=== PATIENT | female | born 1980 | race Caucasian/White ===

== ENCOUNTER 2016-09-26 10:16 | Emergency (ER) | payer OTHER ==
[~2016-09-26] VITALS: Ht 170.2 cm; Wt 70.0 kg
[~2016-09-26 10:16] MED LIST: BENTYL10 MG PO; BENTYL20 MG PO; CIPRO500 MG PO; DELTASONE20 M1 PO; FLAGYL500 MG PO; KEFLEX500 MG PO; LORTAB 5-325 M1 EACH PO; NOHOMEMEDS; NORCO 7.5/321 TABLET PO; PERCOCET 5/31 TABLET PO; REMICADE10 MG/ML IV
[2016-09-26 11:02] LABS: ADD MIUA? YES; BILIRUBIN NEGATIVE; BLOOD NEGATIVE; COLOR YELLOW ((YELLOW)); GLUCOSE (STRIP) NEGATIVE; KETONES NEGATIVE; LEUKOCYTES NEGATIVE; NITRITE NEGATIVE; PROTEIN (STRIP) NEGATIVE; UROBILINOGEN 0.2 MG/DL (0.2-1.0)
[2016-09-26 11:08] LABS: BACTERIA 1+ /HPF; EPITHELIAL CELLS 1+ /HPF; HYALINE CASTS 0-5 /LPF; MUCUS TRACE /LPF; RED BLOOD CELLS 0-5 /HPF (0-5); UCUL ADDED? NO; WHITE BLOOD CELLS 0-5 /HPF (0-5)
[2016-09-26 11:20] LABS: CHLORIDE 105 mEq/L (99-109); POTASSIUM 3.8 mEq/L (3.7-5.4); SODIUM 138 mEq/L (136-147)
[2016-09-26 11:23] LABS: GLUCOSE 86 mg/dL (70-99)
[2016-09-26 11:24] LABS: ANION GAP 10 MEQ/L (2-14)
[2016-09-26 11:25] LABS: TOTAL BILIRUBIN 0.3 mg/dL (0.0-1.0)
[2016-09-26 11:26] LABS: ALKALINE PHOSPHATASE 133 IU/L (3-129); GFR ESTIMATE (CALCULATED) > 59 mL/min/
[2016-09-26 11:27] LABS: UREA NITROGEN (BUN) 8 mg/dL (9-23)
[2016-09-26 11:36] LABS: QUANTITATIVE HCG < 4.0 MIU/ML
[2016-09-26 12:00] LABS: HEMATOCRIT 32.8 % (36.0-46.0); MCH 19.1 PG (29.0-34.0); MCHC 27.7 G/DL (30.0-36.0); MCV 68.8 FL (83-99); PLATELET COUNT 441 K/uL (156-360); RBC DIS.WIDTH-CV 17.1 % (11.8-14.6); RBC DIS.WIDTH-SD 41.2 % (39-53); RED BLOOD COUNT 4.77 M/uL (3.80-5.20); WHITE BLOOD COUNT 8.5 K/uL (4.1-10.2)
[2016-09-26 12:01] LABS: HEM NON-PRINT COM 1 MHCT 34.7
[2016-09-26 12:11] VITALS: BP 104/72
== END 2016-09-26 12:11 | disposition home or self-care (01) ==
LOC: EME 10:16
DX: B34.9 Viral infection, unspecified (principal); Z87.440 Personal history of urinary (tract) infections; Z87.891 Personal history of nicotine dependence
CPT/HCPCS: 80053; 81003; 84702; 85027; 99281; 99284

== ENCOUNTER 2016-10-08 08:07 | Emergency (ER) | payer OTHER ==
[~2016-10-08] VITALS: Ht 170.2 cm; Wt 67.5 kg
[2016-10-08 09:17] LABS: POTASSIUM 3.7 mEq/L (3.7-5.4)
[2016-10-08 09:19] LABS: GLUCOSE 86 mg/dL (70-99)
[2016-10-08 09:20] LABS: ANION GAP 8 MEQ/L (2-14); HEMATOCRIT 29.6 % (36.0-46.0); MCH 19.7 PG (29.0-34.0); MCHC 27.7 G/DL (30.0-36.0); MCV 71.2 FL (83-99); MEAN PLAT.VOLUME 8.5 uM^3 (9.5-12.4); PLATELET COUNT 545 K/uL (156-360); RBC DIS.WIDTH-CV 21.3 % (11.8-14.6); RBC DIS.WIDTH-SD 46.5 % (39-53); RED BLOOD COUNT 4.16 M/uL (3.80-5.20); WHITE BLOOD COUNT 7.7 K/uL (4.1-10.2)
[2016-10-08 09:21] LABS: TOTAL BILIRUBIN 0.3 mg/dL (0.0-1.0)
[2016-10-08 09:22] LABS: ALKALINE PHOSPHATASE 95 IU/L (3-129)
[2016-10-08 09:23] LABS: GFR ESTIMATE (CALCULATED) > 59 mL/min/
[2016-10-08 09:24] LABS: UREA NITROGEN (BUN) 7 mg/dL (9-23)
[2016-10-08 09:42] LABS: CHLORIDE 103 mEq/L (99-109); SODIUM 135 mEq/L (136-147)
[2016-10-08 11:22] LABS: ADD MIUA? YES; BILIRUBIN NEGATIVE; BLOOD MODERATE; COLOR YELLOW ((YELLOW)); GLUCOSE (STRIP) NEGATIVE; KETONES 20; LEUKOCYTES NEGATIVE; NITRITE NEGATIVE; PROTEIN (STRIP) NEGATIVE; SPECIFIC GRAVITY 1.015 (1.000-1.030); UROBILINOGEN 0.2 MG/DL (0.2-1.0)
[2016-10-08 11:46] LABS: BACTERIA 1+ /HPF; CRYSTALS PRESENT; EPITHELIAL CELLS RARE /HPF; MUCUS 1+ /LPF; RED BLOOD CELLS 0-5 /HPF (0-5); UCUL ADDED? NO; WHITE BLOOD CELLS 0-5 /HPF (0-5)
[2016-10-08 11:47] LABS: AMORPHOUS URATES CRYSTALS FEW
[2016-10-08] MEDS ORDERED: CIPRO500 MG PO (12:38)
[2016-10-08 12:55] VITALS: BP 110/53
== END 2016-10-08 12:56 | disposition home or self-care (01) ==
LOC: EME 08:07
PROVIDERS: Emergency Medicine; Nurse Practitioner Family
DX: N39.0 Urinary tract infection, site not specified (principal); R50.9 Fever, unspecified; Z87.891 Personal history of nicotine dependence
CPT/HCPCS: 80053; 81003; 85027; 99281; 99283

== ENCOUNTER 2017-02-28 18:21 | Emergency (ER) | payer OTHER ==
[~2017-02-28] VITALS: Ht 170.2 cm; Wt 67.4 kg
[2017-02-28 19:18] LABS: CHLORIDE 102 mEq/L (99-109); POTASSIUM 3.8 mEq/L (3.7-5.4); SODIUM 137 mEq/L (136-147)
[2017-02-28 19:20] LABS: GLUCOSE 100 mg/dL (70-99); HEMATOCRIT 32.8 % (36.0-46.0); MCH 19.5 PG (29.0-34.0); MCHC 28.7 G/DL (30.0-36.0); MCV 68.2 FL (83-99); MEAN PLAT.VOLUME 8.4 uM^3 (9.5-12.4); PLATELET COUNT 789 K/uL (156-360); RBC DIS.WIDTH-CV 16.2 % (11.8-14.6); RED BLOOD COUNT 4.81 M/uL (3.80-5.20); WHITE BLOOD COUNT 10.5 K/uL (4.1-10.2)
[2017-02-28 19:22] LABS: ANION GAP 12 MEQ/L (2-14); TOTAL BILIRUBIN 0.2 mg/dL (0.0-1.0)
[2017-02-28 19:24] LABS: ALKALINE PHOSPHATASE 207 IU/L (3-129); GFR ESTIMATE (CALCULATED) > 59 mL/min/
[2017-02-28 19:25] LABS: UREA NITROGEN (BUN) 12 mg/dL (9-23)
[2017-02-28 19:45] LABS: QUANTITATIVE HCG < 4.0 MIU/ML
[2017-02-28 22:44] LABS: ADD MIUA? YES; BILIRUBIN NEGATIVE; BLOOD NEGATIVE; COLOR YELLOW ((YELLOW)); GLUCOSE (STRIP) NEGATIVE; KETONES 5; LEUKOCYTES NEGATIVE; NITRITE NEGATIVE; PROTEIN (STRIP) 30; SPECIFIC GRAVITY 1.018 (1.000-1.030); UROBILINOGEN 0.2 MG/DL (0.2-1.0)
[2017-02-28] MEDS ORDERED: FLAGYL500 MG PO (22:48)
[2017-02-28] MEDS ORDERED: CIPRO500 MG PO (22:48)
[2017-02-28 22:51] LABS: BACTERIA RARE /HPF; EPITHELIAL CELLS RARE /HPF; MUCUS TRACE /LPF; RED BLOOD CELLS 0-5 /HPF (0-5); UCUL ADDED? NO; WHITE BLOOD CELLS 0-5 /HPF (0-5)
[2017-02-28 22:58] VITALS: BP 109/58
== END 2017-02-28 23:00 | disposition home or self-care (01) ==
LOC: EME 18:21
DX: K51.00 Ulcerative (chronic) pancolitis without complications (principal); R19.7 Diarrhea, unspecified; R10.9 Unspecified abdominal pain; Z87.891 Personal history of nicotine dependence
CPT/HCPCS: 74176; 80053; 81003; 83605; 84702; 85027; 87040; 87493; 99281; 99284; J2270; J2405; J7030

== ENCOUNTER 2017-03-22 03:07 | Emergency (ER) | payer OTHER ==
[~2017-03-22] VITALS: Ht 170.2 cm; Wt 66.6 kg
[2017-03-22 03:52] LABS: HEMATOCRIT 29.7 % (36.0-46.0); MCH 19.5 PG (29.0-34.0); MCHC 28.3 G/DL (30.0-36.0); MCV 69.1 FL (83-99); PLATELET COUNT 619 K/uL (156-360); RBC DIS.WIDTH-SD 41.8 % (39-53); WHITE BLOOD COUNT 10.1 K/uL (4.1-10.2)
[2017-03-22 03:57] LABS: CHLORIDE 104 mEq/L (99-109); POTASSIUM 3.9 mEq/L (3.7-5.4); SODIUM 136 mEq/L (136-147)
[2017-03-22 03:59] LABS: GLUCOSE 94 mg/dL (70-99)
[2017-03-22 04:00] LABS: ANION GAP 11 MEQ/L (2-14)
[2017-03-22 04:03] LABS: GFR ESTIMATE (CALCULATED) > 59 mL/min/; UREA NITROGEN (BUN) 8 mg/dL (9-23)
[2017-03-22 04:07] LABS: TROP-I INTERPRETATION NEGATIVE; TROPONIN-I < 0.01 ng/mL (0.0-0.30)
[2017-03-22] MEDS ORDERED: PREDNISONE50 MG PO (06:18)
[2017-03-22 06:31] VITALS: BP 117/63
== END 2017-03-22 06:31 | disposition home or self-care (01) ==
LOC: EME 03:07
DX: R07.9 Chest pain, unspecified (principal); Z87.891 Personal history of nicotine dependence
CPT/HCPCS: 71020; 71275; 80048; 84484; 85027; 85379; 93005; 99281; 99285; J1885; J7030; J7512

== ENCOUNTER 2017-11-29 07:18 | Emergency (ER) | payer OTHER ==
[~2017-11-29] VITALS: Ht 170.2 cm; Wt 69.9 kg
[~2017-11-29 07:18] MED LIST changes: +PREDNISONE50 MG PO
[2017-11-29 08:20] LABS: HEMATOCRIT 28.4 % (36.0-46.0); HEMOGLOBIN 8.2 G/DL (11.9-15.5); MCH 19.3 PG (29.0-34.0); MCHC 28.9 G/DL (30.0-36.0); PLATELET COUNT 470 K/uL (156-360); RBC DIS.WIDTH-CV 16.8 % (11.8-14.6); RBC DIS.WIDTH-SD 39.7 % (39-53); RED BLOOD COUNT 4.24 M/uL (3.80-5.20); WHITE BLOOD COUNT 9.3 K/uL (4.1-10.2)
[2017-11-29 08:22] LABS: ALBUMIN 3.6 G/DL (3.2-4.8); CHLORIDE 101 MEQ/L (99-109); DIRECT BILIRUBIN 0.1 mg/dL (0.0-0.3); POTASSIUM 3.7 MEQ/L (3.7-5.4); SODIUM 130 MEQ/L (136-147); TOTAL BILIRUBIN 0.4 MG/DL (0.0-1.0)
[2017-11-29 08:27] LABS: ALKALINE PHOSPHATASE 144 IU/L (3-129); ALT (GPT) 17 IU/L (3-49); AST (GOT) 13 IU/L (2-34); CREATININE 0.8 MG/DL (0.6-1.3); GFR ESTIMATE (CALCULATED) > 59 mL/min/; GLUCOSE 123 mg/dL (70-99); LIPASE 13 U/L (1.0-51.0); TOTAL PROTEIN 7.6 G/DL (6.4-8.3); UREA NITROGEN (BUN) 10 mg/dL (9-23)
[2017-11-29 08:52] LABS: QUANTITATIVE HCG < 4.0 MIU/ML
[2017-11-29 10:25] LABS: APPEARANCE CLEAR ((CLEAR)); BILIRUBIN NEGATIVE; BLOOD NEGATIVE; COLOR YELLOW ((YELLOW)); GLUCOSE (STRIP) NEGATIVE; KETONES NEGATIVE; LEUKOCYTES TRACE; NITRITE NEGATIVE; PROTEIN (STRIP) NEGATIVE; UROBILINOGEN 0.2 MG/DL (0.2-1.0)
[2017-11-29 10:38] LABS: BACTERIA 2+ /HPF; EPITHELIAL CELLS RARE /HPF; HYALINE CASTS 0-5 /LPF; MUCUS NONE SEEN /LPF; RED BLOOD CELLS 0-5 /HPF (0-5); UCUL ADDED? YES; WHITE BLOOD CELLS 0-5 /HPF (0-5)
[2017-11-29] MEDS ORDERED: PERCOCET 5/31 TABLET PO (11:56)
[2017-11-29] MEDS ORDERED: PREDNISONE20 MG PO (11:56)
[2017-11-29 12:01] LABS: C DIFF TOXIN NEGATIVE (NEGATIVE)
[2017-11-29 12:34] VITALS: BP 102/54
== END 2017-11-29 12:58 | disposition home or self-care (01) ==
LOC: EME 07:18
PROVIDERS: Emergency Medicine
DX: K51.90 Ulcerative colitis, unspecified, without complications (principal); R10.10 Upper abdominal pain, unspecified; N26.1 Atrophy of kidney (terminal); N20.0 Calculus of kidney; Z87.891 Personal history of nicotine dependence
CPT/HCPCS: 74177; 80048; 80076; 81003; 83690; 84702; 85027; 87086; 87177; 87493; 87506; 99281; 99284; J2405; J7030; J7512